=== PATIENT | male | born 1955 | race Caucasian/White ===

== ENCOUNTER 2018-09-03 08:51 | Emergency (ER) | payer MEDICARE ==
[~2018-09-03] VITALS: Ht 177.8 cm; Wt 204.1 kg
[2018-09-03 08:51] VITALS: BP_SYST 131
[2018-09-03] MEDS ORDERED: KETOROLAC TROMETHAMINE 30 MG VIAL IVP ONE (09:45)
[2018-09-03 10:50] VITALS: BP_SYST 131
== END 2018-09-03 10:50 | disposition home or self-care (01) ==
LOC: SED 08:51
DX: S39.012A Strain of muscle, fascia and tendon of lower back, initial encounter (principal); E66.01 Morbid (severe) obesity due to excess calories; Z68.44 Body mass index [BMI] 60.0-69.9, adult; Z88.0 Allergy status to penicillin; X50.9XXA Other and unspecified overexertion or strenuous movements or postures, initial encounter; Y93.89 Activity, other specified; Y92.89 Other specified places as the place of occurrence of the external cause; Y99.8 Other external cause status
CPT/HCPCS: 96374; 99283; J1885

== ENCOUNTER → 2021-12-24 | Emergency (ER) | payer MEDICARE ==
[~2021-12-24] VITALS: Ht 177.8 cm; Wt 204.1 kg
[~2021-12-24] MED LIST: MORPHINE 2 MG/ML INJ. SYRINGE IVP ONE; NACL 0.9% 1,000 ML IV ONE
[2021-12-24 16:13] VITALS: BP_SYST 159
[2021-12-24 17:25] LABS: BASOPHILS % (AUTO) 0.4 % (0.0-2.0); EOSINOPHILS # (AUTO) 0.1 K/uL (0.0-0.4); EOSINOPHILS % (AUTO) 1.1 % (0.0-4.0); HEMATOCRIT 45.5 % (36-54); HEMOGLOBIN 15.3 g/dL (14.0-18.0); LYMPHOCYTES # (AUTO) 0.7 K/uL (1.0-5.5); LYMPHOCYTES % (AUTO) 8.4 % (20.5-51.5); MEAN CORPUSCULAR HEMOGLOBIN 31 pg (27-31); MEAN CORPUSCULAR HGB CONC 34 % (32-36); MEAN CORPUSCULAR VOLUME 92 fL (79.0-98.0); MONOCYTES # (AUTO) 0.9 K/uL (0.0-1.0); MONOCYTES % (AUTO) 9.7 % (1.7-9.3); NEUTROPHILS % (AUTO) 80.4 % (40.0-70.0); PLATELET COUNT (AUTO) 175 K/uL (130-430); RED BLOOD CELL COUNT(AUTO) 4.97 MIL/uL (4.2-6.2); RED CELL DISTRIBUTION WIDTH 14.5 % (9.0-15.0); WHITE BLOOD COUNT (AUTO) 8.7 K/uL (4.8-10.8)
[2021-12-24 17:59] LABS: CALCIUM 9.2 mg/dL (8.4-11.0); CREATININE 0.9 mg/dL (0.55-1.30)
[2021-12-24 18:05] LABS: ALBUMIN 3.1 g/dL (3.4-4.8); TOTAL BILIRUBIN 0.7 mg/dL (0.0-1.0)
[2021-12-24 19:56] LABS: INR 3.2 (0.80-1.20)
== END | disposition home or self-care (01) ==
LOC: SED 15:54
DX: K42.9 Umbilical hernia without obstruction or gangrene (principal); R10.9 Unspecified abdominal pain; E11.9 Type 2 diabetes mellitus without complications; Z88.0 Allergy status to penicillin
CPT/HCPCS: 36415; 80053; 85025; 85610; 93005; 96361; 96374; 99283; J2270; J7030; 96360